=== PATIENT | female | born 1935 | race Caucasian/White ===

== ENCOUNTER 2018-12-22 19:28 | Emergency (ER) | payer MEDICARE, OTHER ==
[2018-12-22] MEDS ORDERED: Ibuprofen 600 MG Tab PO ONE (19:55)
[2018-12-22] MEDS ORDERED: cefTRIAXone 1 GM Vial IM STA (19:56)
--- NOTE | 2018-12-22 21:01 | EDM.PDOC ---
ED HPI GENERAL MEDICAL PROBLEM - General Stated Complaint: POSSIBLE BUG BITE ON ELBOW/FEVER Time Seen by Provider: 12/22/18 19:28 Source of Information: Reports: Patient, Family History Limitations: Reports: No Limitations - History of Present Illness INITIAL COMMENTS - FREE TEXT/NARRATIVE: 83 y.o.w.f came to the ed with her to the ed due to a rash and swelling of her right posterior elbow which feels warm. Pt has FROM with some discomfort. Pt woke up with this symptoms at 3.30 am. She may have bee stung by an insect. No Trauma. No N/V/D no Dizziness no F/C, no SOB or any other acute med issues. BP 178/53 HR 78 Temp 98.3 RR 18 pulse ox 95% on RA Onset Date: 12/22/18 Onset Time: 03:30 Duration: Hour(s):, Getting Worse, Intermittent Location: Reports: Upper Extremity, Right (posterior elbow) Quality: Reports: Ache, Burning Severity: Moderate Improves with: Reports: Rest Worsens with: Reports: Movement Context: Reports: Other (Possible instect bite) Associated Symptoms: Reports: No Other Symptoms - Related Data Allergies Allergy/AdvReac Type Severity Reaction Status Date / Time No Known Allergies Allergy Verified 12/22/18 19:55 Home Meds: Home Meds Aspirin [Adult Aspirin] 81 mg PO DAILY 12/28/17 [History] Benazepril [Lotensin] 20 mg PO DAILY 12/28/17 [History] Calcium Carbonate [Calcium] 600 mg PO DAILY 12/28/17 [History] Fish Oil/[place]-3 Fatty Acids [Fish Oil 1,000 MG] 1 gm PO DAILY 12/28/17 [History ] Flaxseed Oil 1,000 mg PO DAILY 12/28/17 [History] Levothyroxine 175 mcg PO ACBRK 12/28/17 [History] Metoprolol Succinate 50 mg PO DAILY 12/28/17 [History] Multivitamin [Multi-Vitamin Daily] 1 each PO DAILY 12/28/17 [History] Simvastatin [Zocor] 40 mg PO DAILY 12/28/17 [History] amLODIPine Besylate [Amlodipine Besylate] 10 mg PO DAILY 12/28/17 [History] hydroCHLOROthiazide [Hydrochlorothiazide] 25 mg PO DAILY 12/28/17 [History] Cephalexin [Keflex] 500 mg PO Q6HR #40 capsule 12/22/18 [Rx] Past Medical History HEENT History: Reports: Cataract Cardiovascular History: Reports: High Cholesterol, Hypertension Gastrointestinal History: Reports: Other (See Below) Other Gastrointestinal History: hx of liver inflammation. 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 Endocrine/Metabolic History: Reports: Hypothyroidism - Past Surgical History GI Surgical History: Reports: Cholecystectomy Social & Family History - Family History Family Medical History: Noncontributory - Caffeine Use Caffeine Use: Reports: Coffee, Soda ED ROS GENERAL - Review of Systems Review Of Systems: See Below Constitutional: Reports: No Symptoms HEENT: Reports: No Symptoms Respiratory: Reports: No Symptoms Cardiovascular: Reports: No Symptoms Endocrine: Reports: No Symptoms GI/Abdominal: Reports: No Symptoms : Reports: No Symptoms Musculoskeletal: Reports: No Symptoms Skin: Reports: Rash (right posterior elbow) Neurological: Reports: No Symptoms Psychiatric: Reports: No Symptoms Hematologic/Lymphatic: Reports: No Symptoms Immunologic: Reports: No Symptoms ED EXAM, SKIN/RASH Exam: See Below Exam Limited By: No Limitations General Appearance: Alert, WD/WN, Mild Distress Eye Exam: Bilateral Eye: Normal Inspection Ears: Normal External Exam Nose: Normal Inspection Throat/Mouth: Normal Inspection Head: Atraumatic, Normocephalic Neck: Normal Inspection, Supple, Non-Tender, Full Range of Motion Respiratory/Chest: No Respiratory Distress, Lungs Clear, Normal Breath Sounds, Chest Non-Tender Cardiovascular: Normal Peripheral Pulses, Regular Rate, Rhythm, No Edema Peripheral Pulses: 2+: Brachial (R) GI/Abdominal: Normal Bowel Sounds (Female) Exam: Deferred Rectal (Female) Exam: Deferred Back Exam: Normal Inspection, Full Range of Motion Extremities: Normal Inspection, Normal Range of Motion Neurological: Alert, Oriented, CN II-XII Intact, Normal Cognition, Normal Gait Psychiatric: Normal Affect, Normal Mood Skin: Warm, Dry, Rash (right posterior elbow) Location, Skin: Upper Extremity, Right (elbow) Characteristics: Erythematous Lymphatic: No Adenopathy Course - Vital Signs Text/Narrative:: 83 y.o.w.f came to the ed with her to the ed due to a rash and swelling of her right posterior elbow which feels warm. Pt has FROM with some discomfort. Pt woke up with this symptoms at 3.30 am. She may have bee stung by an insect. No Trauma. No N/V/D no Dizziness no F/C, no SOB or any other acute med issues. BP 178/53 HR 78 Temp 98.3 RR 18 pulse ox 95% on RA PE: WNWD W F in NAD with a rash at her right post elbow, feels warm. Imaging: CT right elbow: Cellulitis/buesitis, official report is pending Labs: WBC nl Lactic acid 1.3 Cr. 1.1 BUN 23 GFR 39 Blood Cx are pending Impression: Bacterial Bursitis right elbow, possible due to insect bite Tx: Motrin, Rocephin, ICE Reexam: Improved, pt refused arm sling Plan: D/C with instructions - Orders/Labs/Meds Orders: Active Orders 24 hr Category Date Time Status Upper Extremity wo Cont Rt [CT] Stat Exams 12/22/18 20:29 Taken CULTURE BLOOD [BC] Urgent Lab 12/22/18 20:03 Received CULTURE BLOOD [BC] Urgent Lab 12/22/18 20:09 Received Blood Culture x2 Reflex Set [OM.PC] Urgent Oth 12/22/18 19:54 Ordered Labs: Laboratory Tests 12/22/18 12/22/18 12/22/18 Range/Units 20:03 20:03 20:03 WBC 12.0 (4.5-12.0) X10-3/uL RBC 5.24 H (3.23-5.20) x10(6)uL Hgb 16.5 H (11.5-15.5) g/dL Hct 48.8 (30.0-51.3) % MCV 93.2 (80-96) fL MCH 31.6 (27.7-33.6) pg MCHC 33.9 (32.2-35.4) g/dL RDW 13.1 (11.5-15.5) % Plt Count 198 (125-369) X10(3)uL MPV 7.6 (7.4-10.4) fL Neut % (Auto) 74.0 (46-82) % Lymph % (Auto) 13.8 (13-37) % Armstrong % (Auto) 9.2 (4-12) % Eos % (Auto) 2 (1.0-5.0) % Baso % (Auto) 1 (0-2) % Neut # (Auto) 8.8 H (1.6-8.3) # Lymph # (Auto) 1.7 (0.6-5.0) # Armstrong # (Auto) 1.1 (0.0-1.3) # Eos # (Auto) 0.3 (0.0-0.8) # Baso # (Auto) 0.1 (0.0-0.2) # Sodium 144 (135-145) mmol/L Potassium 3.7 (3.5-5.3) mmol/L Chloride 105 (100-110) mmol/L Carbon Dioxide 27 (21-32) mmol/L BUN 23 H (7-18) mg/dL Creatinine 1.3 H (0.55-1.02) mg/dL Est Cr Clr Drug Dosing TNP Estimated GFR (MDRD) 39 L (>60) BUN/Creatinine Ratio 17.7 (9-20) Glucose 125 H (80-116) mg/dL Lactic Acid 1.3 (0.4-2.2) mmol/L Calcium 9.9 (8.6-10.2) mg/dL Meds: Medications Discontinued Medications Generic Name Dose Route Start Last Admin Trade Name Freq PRN Reason Stop Dose Admin Ceftriaxone Sodium 1 gm 12/22/18 19:56 12/22/18 20:03 Rocephin IM 12/22/18 19:57 1 gm ONETIME STA Administration Ibuprofen 600 mg 12/22/18 19:55 12/22/18 20:02 Motrin PO 12/22/18 19:56 600 mg ONETIME ONE Administration Departure - Departure Time of Disposition: 21:01 Disposition: Home, Self-Care 01 Condition: Good Clinical Impression: Bursitis due to bacterial infection - Discharge Information Prescriptions: Cephalexin [Keflex] 500 mg PO Q6HR #40 capsule Instructions: Elbow Bursitis, [id number] Referrals: Chapis Aponte NP [Primary Care Provider] - Forms: ED Department Discharge Additional Instructions: Ice, rest and elevation. Please take Abx as recommended, please take Motrin for pain, please f/u, come back if your symptoms get worse acutely - My Orders Last 24 Hours: My Active Orders 12/22/18 19:54 Blood Culture x2 Reflex Set [OM.PC] Urgent 12/22/18 20:03 CULTURE BLOOD [BC] Urgent 12/22/18 20:09 CULTURE BLOOD [BC] Urgent 12/22/18 20:29 Upper Extremity wo Cont Rt [CT] Stat - Assessment/Plan Last 24 Hours: My Active Orders 12/22/18 19:54 Blood Culture x2 Reflex Set [OM.PC] Urgent 12/22/18 20:03 CULTURE BLOOD [BC] Urgent 12/22/18 20:09 CULTURE BLOOD [BC] Urgent 12/22/18 20:29 Upper Extremity wo Cont Rt [CT] Stat
== END 2018-12-22 21:15 | disposition home or self-care (01) ==
LOC: FB.ED 19:28
DX: M70.31 Other bursitis of elbow, right elbow (principal); B96.89 Other specified bacterial agents as the cause of diseases classified elsewhere
CPT/HCPCS: 36415; 73200; 80048; 83605; 85025; 87040; 96372; 99284; A9270; J0696; 99283

== ENCOUNTER 2023-03-27 03:46 | Emergency (ER) | payer MEDICARE, OTHER ==
[2023-03-27] MEDS ORDERED: Lidocaine 1% 20 ML MDV INFILT ONE (03:47)
== END 2023-03-27 06:54 | disposition home or self-care (01) ==
LOC: FB.ED 03:46
DX: S01.01XA Laceration without foreign body of scalp, initial encounter (principal); E78.00 Pure hypercholesterolemia, unspecified; I10 Essential (primary) hypertension; E03.9 Hypothyroidism, unspecified; Z79.899 Other long term (current) drug therapy; Z79.82 Long term (current) use of aspirin; W18.30XA Fall on same level, unspecified, initial encounter
CPT/HCPCS: 12002; 70450; 72125; 99283